=== PATIENT | female | born 1935 | race Caucasian/White ===

== ENCOUNTER 2016-11-30 03:45 | Inpatient (IN) | payer OTHER, MEDICARE ==
[~2016-11-30] VITALS: Ht 165.1 cm; Wt 76.2 kg
[~2016-11-30 03:45] MED LIST: ADULT LOW DOSE81 MG PO; ASPIRIN EC325 M2 PO; ASPIRIN EC81 M1 PO; COLACE100 M1 PO; COZAAR100 M1 PO; DILAUDID2 M1 PO; MIRALAX17 G1 PO; PRAVACHOL40 M1 PO; TIROSINT75 MC1 PO; ZYLOPRIM300 M1 PO
--- NOTE | 2016-11-30 10:16 | Admission Core Measures ---
Admission Meds I reviewed the following Meds: Current Medications Sig/Reva Start time Last Medication Dose Stop Time Status Admin Acetaminophen 975 MG ONCE 11/30 0000 NR (Tylenol) 11/30 2358 Allopurinol 300 MG DAILY 12/01 1000 AC (Zyloprim) Cefazolin Sodium 2,000 MG ONCE 11/30 0000 NR (Kefzol-Ancef Inj) 11/30 2358 Levothyroxine Sodium 0.075 MG DAILY AC 12/01 0700 AC (Synthroid) Losartan Potassium 100 MG BID 11/30 2199 UNVr (Cozaar) Oxycodone HCl 10 MG ONCE 11/30 0000 NR (Roxicodone) 11/30 2358 Patient Medication 1 UNIT 17011/30 170 AC Teaching 11/30 170 (STATIN EDUCATION) Pravastatin Sodium 40 MG 1700 11/30 170 AC (Pravachol) Acute Coronary Syndrome Inclusion Criteria ACS Diagnosis No Inpatient Core Measures LDL Reminder: If No, please order W/I first 24hr of stay Congestive Heart Failure Inclusion Criteria CHF Diagnosis No Cerebrovascular accident Inclusion Criteria CVA/TIA Diagnosis No Inpatient Core Measures Bedside Swallow Eval Reminder: If BSE failed, place ST order Antithrombotic Reminder: Order Antithrombotic Medication by end of day 2 Antithrombotic Reminder: Document Reason Antithrombotic Not ordered by end of day 2 AFIB/Flutter Reminder: If Present, add to problem list AFIB/Flutter Reminder: Order Anticoag Medication for pts with AFIB/Flutter Atherosclerosis Reminder: If Present, add to problem list LDL Reminder: If No, please order W/I first 24hr of stay PT Order Reminder: If No, please order Venous thromboembolism Inpatient Core Measures VTE Risk Factors: Age > 40, Surgery No [facility] VTE prophylaxis d/t No contraindications No VTE Pharm Prophylaxis d/t No contraindications Inclusion Criteria - Per Current guidelines, there needs to be overlap - treatment for the first 5 days of Warfarin therapy. - Parenteral Anticoagulation (IV or SC) needs to be - given along with Warfarin therapy. VTE Diagnosis No VTE Type NONE VTE Confirmed by (Test) NONE Problem List As ranked by this Provider includes Assessment & Plan 1. Status post total left knee replacement HOME MEDS Home Med List Allopurinol (Zyloprim) 300 MG TABLET 1 TAB PO DAILY GOUT (Reported) Aspirin (Ecotrin*) 81 MG TABLET.DR 1 TAB PO DAILY PROPHO (Reported) Levothyroxine Sodium (Tirosint) 75 MCG CAPSULE 0.5 TAB PO DAILY THYROID ( Reported) Losartan (Cozaar) 100 MG TABLET 1 TAB PO BID HEART HEALTH (Reported) Pravastatin Sodium (Pravachol) 40 MG TABLET 1 TAB PO DAILY CHOLESTEROL ( Reported)
--- NOTE | 2016-11-30 10:18 | Surg Short-stay <48hrs Dis Sum ---
Visit Information Visit Dates Admission Date: 11/30/16 Discharge Date: 12/03/16 Surgical Short Stay DC Summary Admission Diagnosis: KNEE PAIN Final Diagnosis: S/P TKR Procedure(s): right TKR - see operative report Summary/Significant Findings: Pt underwent a r tkr by Dr Valencia, she tolerated the procedure well and was brought to the PACu in stable condition. Over the next two days she was voiding without difficulty, her pain was well controlled. She worked with PT and was deemed stable for discharge home with services. Condition at Discharge: good Discharge Disposition: home health services Discharge instructions provided to patient/family: Yes Post discharge follow-up plan: Keep scheduled appointment with DR Valencia. Call sooner if needed.
--- NOTE | 2016-11-30 10:20 | Patient Discharge Instructions ---
Discharge Instructions General Discharge Information You were seen/treated for: Knee pain You had these procedures: Total knee replacement Watch for these problems: temp>101, increased redness or drainage of wounds, inability to bear weight No bath, but you may shower: Yes Other wound care: Keep incision clean and dry Diet Recommended Diet: Heart Healthy Activity Activity Self Limited: Yes Activity Limited to: Weight bear as tolerated Acute Coronary Syndrome Inclusion Criteria At DC or during hospital stay patient has or had the following: ACS DIAGNOSIS No Discharge Core Measures Meds if any: Prescribed or Continued at Discharge Meds if any: NOT Prescribed or Continued at Discharge Congestive Heart Failure Inclusion Criteria At DC or during hospital stay patient has or had the following: CHF DIAGNOSIS No Discharge Core Measures Meds if any: Prescribed or Continued at Discharge Meds if any: NOT Prescribed or Continued at Discharge Cerebrovascular accident Inclusion Criteria At DC or during hospital stay patient has or had the following: CVA/TIA Diagnosis No Discharge Core Measures Meds if any: Prescribed or Continued at Discharge Meds if any: NOT Prescribed or Continued at Discharge Venous thromboembolism Inclusion Criteria VTE Diagnosis No VTE Type NONE VTE Confirmed by (Test) NONE Discharge Core Measures - Per Current guidelines, there needs to be overlap - treatment for the first 5 days of Warfarin therapy. - If discharged on Warfarin prior to 5 days of - overlap therapy, the patient will need to be - assessed for post discharge needs including - *Post discharge parental anticoagulation - *Warfarin and/or parental anticoagulation education - *Follow up date to check INR post discharge At least 5 days overlap therapy as Inpatient No Meds if any: Prescribed or Continued at Discharge Note: Overlap Therapy is Warfarin and Anticoagulant Meds if any: NOT Prescribed or Continued at Discharge
[2016-11-30] MEDS ORDERED: MIRALAX17 G1 PO (10:24)
[2016-11-30] MEDS ORDERED: DILAUDID4 M1 PO (10:24)
[2016-11-30] MEDS ORDERED: MS CONTIN15 M2 PO (10:24)
[2016-11-30] MEDS ORDERED: COLACE100 M1 PO (10:24)
[2016-11-30] MEDS ORDERED: ASPIRIN EC325 M2 PO (10:24)
--- NOTE | 2016-11-30 14:40 | PN- Orthopedic ---
Subjective Subjective: Awake, alert No complaints at this time Pain is well controlled No nausea Has not worked with PT yet Objective Vital Signs and I&Os VSS, afebrile No voiding yet post op Physical Exam: General: alert and oriented times three Chest:clear anteriorly bilaterally, RRR Abd: soft, good bs Ext: warm, no edema, positive sensate, 5/5 MARLO BLE, no calf tenderness Wound: dressed, dry, ice pack in place On Q in place Assessment/Plan Assessment/Plan 81 yo female s/p R TKR pain management On Q per anesthesia PT - wbat asa 325mg po bid for dvt ppx Core Measures/Miscellaneous Venous Thromboembolism VTE Risk Factors: Age > 40, Surgery VTE Contraindications: No Contraindications VTE Diagnosis: No VTE Type: NONE VTE Confirmed by (Test): NONE [facility] Is Beta Elizabeth a Home Med? No Antibiotics Is Patient on Antibiotics? Yes If Yes: prophylaxis (24 hrs post op)
[2016-11-30 16:04] VITALS: BP 132/70
--- NOTE | 2016-11-30 16:47 | Operative Report ---
Operative/Inv Procedure Report Surgery Date: 11/30/16 Name of Procedure: Right total knee replacement Pre-Operative Diagnosis: Primary right knee DJD Post-Operative Diagnosis: Same Estimated Blood Loss: 50ml to 100ml Surgeon/Associate Entertainment Editor: DONNA FOSTER,YOLETTE Rush Anesthesia: block Operative/Procedure Note Note: Description of Procedure: The patient was taken to the operating room and positively identified. After induction of spinal anesthesia and administration of appropriate pre-operative antibiotics, the patient was positioned supine on the operating room table and all bony prominences were well padded. A well-padded pneumatic tourniquet was placed on the right upper thigh. After performing a surgical timeout, the right lower extremity was prepped and draped in the usual sterile fashion. After exsanguination with Esmarch the tourniquet was inflated to 250mm of mercury. A standard medial parapatellar approach was made to the knee. This was carried down through skin and subcutaneous tissue to the level of the fascia. Meticulous hemostasis was maintained with Bovie electrocautery. The extensor mechanism and patellar retinaculum were opened sharply and the patella was everted. The infrapatellar fat was resected in order to improve exposure. Osteophytes were trimmed from the patella and femoral condyles and the patella was re-everted and tucked laterally. A medial release was performed and the cruciate ligaments were resected. The tibia was then subluxed anteriorly. Utilizing the appropriate extra-medullary guide, the proximal tibia was trimmed perpendicular to the long axis of the tibial shaft. Attention was then turned to the femur. After opening the medullary canal, the distal femoral cut was made in 6 degrees of valgus utilizing the appropriate intra-medullary guide. The extension gap was checked and found to be appropriate. The femur was then sized and the remainder of the femoral cuts were made with a size 4 4-in-1 femoral cutting guide. The flexion gap was checked and found to be symmetric and appropriate. The knee was then trialed with a size 4 femoral component, a size 4 tibial component and a size 11 mm polyethylene insert. The patella was trimmed to accept an A 35 patella. This yielded excellent range of motion, stability and patellar tracking. All trial components were removed and the knee was copiously irrigated with sterile saline. All components were cemented into place with [place] Simplex cement. All the components were of the [employer] Tri[employer] knee system of the above stated sizes. The knee was again irrigated after cementation. The extensor mechanism and patellar retinaculum were repaired using interrupted #1 vicryl suture. The skin was re-approximated with 2-0 vicryl and closed with jhoana. A sterile dressing was applied, the tourniquet was deflated, the patient was awakened and taken to the recovery room in satisfactory condition.
[2016-11-30 17:25] VITALS: BP 134/70
[2016-11-30 23:11] VITALS: BP 130/70
[2016-11-30 23:12] VITALS: BP 134/84
[2016-11-30 23:13] VITALS: BP 136/66
[2016-12-01 03:26] VITALS: BP 152/83
[2016-12-01 06:42] VITALS: BP 162/79
--- NOTE | 2016-12-01 07:56 | PN- Orthopedic ---
Subjective Subjective: The patient was seen this morning postoperatively day 1. She reports some minor soreness but the current pain regiment is adequate. She has no other complaints at the current time. Objective Vital Signs and I&Os Vital Signs Date Time Temp Pulse Resp B/P B/P Pulse O2 O2 Flow FiO2 Mean Ox Delivery Rate 12/01 0542 98.0 81 20 162/79 95 Room Air 12/01 0326 98.1 72 20 152/83 93 Room Air 11/30 2313 98.6 68 18 136/66 93 Room Air 11/30 2312 98.5 65 18 134/84 97 Room Air / 2311 98.8 69 18 130/70 94 Room Air / 1725 97.7 63 20 134/70 96 Room Air 11/30 1604 98.4 59 18 132/70 95 Room Air 11/30 1549 95 Room Air Intake & Output 12/01 0800 05/ 0000 05/08 1600 / 0800 05/08 0000 05/ 1600 Intake Total 1250 Output Total 950 500 Balance -950 750 Intake, IV 800 Intake, Oral 450 Output, Urine 950 500 Patient 168 lb 168 lb Weight Physical Exam: Gen.: Alert and in no obvious distress Skin: Warm and dry Extremities: Bilateral lower extremities are warm without calf tenderness or significant edema. Gross motor and sensory are intact. Right knee surgery dressing is clean, dry, and intact. His On-Q pain pump intact. Assessment/Plan Assessment/Plan Assessment: 81-year-old female status post right total knee arthroplasty postoperative day 1. The patient is progressing as expected and her pain is under adequate control. Plan: Out of bed with physical therapy Continue current pain regiment Hep-Lock IV fluids Follow-up morning laboratory studies Aspirin 325 mg by mouth twice a day GI and DVT prophylaxis Strict I's and O's Incentive spirometry First surgical dressing change tomorrow Core Measures/Miscellaneous Venous Thromboembolism VTE Risk Factors: Age > 40, Surgery VTE Contraindications: No Contraindications VTE Diagnosis: No VTE Type: NONE VTE Confirmed by (Test): NONE Beta Elizabeth Is Beta Elizabeth a Home Med? No Antibiotics Is Patient on Antibiotics? No
[2016-12-01 08:10] LABS: ABSOLUTE BASOPHIL COUNT 0 /CUMM (0.0-0.2); ABSOLUTE EOSINOPHIL COUNT 0.2 /CUMM (0.0-0.7); ABSOLUTE GRANULOCYTE CT 4.6 /CUMM (1.4-6.5); ABSOLUTE LYMPH COUNT 1.4 /CUMM (1.2-3.4); ABSOLUTE MONOCYTE COUNT 0.6 /CUMM (0.10-0.60); BASOPHIL % 0.7 % (0.0-2.0); EOSINOPHIL % 2.5 % (0-5); GRANULOCYTE % 67.8 % (42.2-75.2); HEMATOCRIT 29.6 % (37-47); MEAN CORPUSCULAR HGB CONC 33.2 G/DL (33.0-37.0); MEAN CORPUSCULAR VOLUME 90.3 FL (81.0-99.0); MEAN PLATELET VOLUME 7.8 FL (7.4-10.4); PLATELET COUNT 203 /CUMM (130-400); RBC DISTRIBUTION WIDTH 13.5 % (11.5-14.5); RED BLOOD CELL CT 3.28 /CUMM (4.20-5.40); WHITE BLOOD CELL COUNT 6.8 /CUMM (4.8-10.8)
[2016-12-01 14:20] VITALS: BP 162/82
[2016-12-01 22:40] VITALS: BP 154/78
[2016-12-02 06:56] VITALS: BP 130/70
--- NOTE | 2016-12-02 07:18 | PN- Orthopedic ---
See Addendum Subjective Subjective: POD#2 S/P RIGHT TKA PAIN ISSUES YESTERDAY BUT IMPROVED TODAY WITH PO PAIN MEDS ELIER CP, SOB, NO N+V WITH DIET Objective Vital Signs and I&Os Vital Signs Date Time Temp Pulse Resp B/P B/P Pulse O2 O2 Flow FiO2 Mean Ox Delivery Rate / 0656 98.6 69 18 130/70 95 Room Air 12/01 2240 98.6 78 20 154/78 97 Room Air 12/01 1420 98.2 77 20 162/82 96 Room Air 12/01 1006 86 165/92 Intake & Output / 0800 12/02 0000 12/01 1600 12/01 0800 12/01 0000 11/30 1600 Intake Total 771 201 8185 Output Total 1050 500 950 500 Balance -930 -100 -950 750 Intake, IV 0 800 Intake, Oral 120 400 450 Number 0 Bowel Movements Output, Urine 1050 500 950 500 Patient 168 lb 168 lb Weight Physical Exam: CV; RRR LUNGS: CLEAR ABD: SOFT, +BS EXT: DRSG CHANGED, WOUND C/D/I NO CALF TENDERNESS BILAT DISTAL CMS INTACT Assessment/Plan Assessment/Plan ORTHO STABLE PLAN CONT OOB WITH PT/STAIRS ELIQUIS BIS FOR DVT PROPHYLAXIS HOME D/C PLANNING Core Measures/Miscellaneous Venous Thromboembolism VTE Risk Factors: Age > 40, Surgery VTE Contraindications: No Contraindications VTE Diagnosis: No VTE Type: NONE VTE Confirmed by (Test): NONE Beta Elizabeth Is Beta Elizabeth a Home Med? No Antibiotics Is Patient on Antibiotics? No
[2016-12-02 14:28] VITALS: BP 139/90
[2016-12-02 22:07] VITALS: BP 144/80
[2016-12-03 06:49] VITALS: BP 150/64
--- NOTE | 2016-12-03 07:30 | PN- Orthopedic ---
Subjective Subjective: Patient is now postoperative day #3 status post right total knee replacement. She has no major complaints today. Pain is well-controlled. She is been ambulating well with physical therapy. She is tolerating a diet and voiding well. No bowel movement as of yet, but she somewhat feels the urge and things settled much easier to have one when she gets home. Otherwise denies headache, dizziness, chest pain, shortness of breath. Objective Vital Signs and I&Os Vital Signs Date Time Temp Pulse Resp B/P B/P Pulse O2 O2 Flow FiO2 Mean Ox Delivery Rate 12/03 0649 98.9 81 20 150/64 94 Room Air 12/02 2207 98.5 88 20 144/80 96 / 1428 98.6 90 18 139/90 94 Room Air 12/02 0958 86 144/60 Intake & Output 12/03 1600 12/03 0800 12/03 0000 12/02 1600 12/02 0800 12/02 0000 Intake Total 240 900 50 120 Output Total 400 898 000 8454 Balance -160 400 -550 -930 Intake, IV 0 Intake, Oral 240 900 50 120 Number 0 Bowel Movements Output, Urine 400 635 747 1553 Physical Exam: Gen.: Patient is awake and alert. No acute distress. Cardiac: Regular Pulmonary: Lungs are clear bilaterally. Abdomen: Soft and nondistended. Nontender. Normoactive bowel sounds were heard. Extremities: The right knee incision is clean, dry, and intact with jhoana. There is some mild surrounding swelling and ecchymosis, within expected limits. Lower x-ray sensation is intact and strength of dorsiflexion and plantar flexion are 5 out of 5. No significant calf tenderness is appreciated bilaterally. Assessment/Plan Assessment/Plan Patient is an 81-year-old female with a past medical history significant for gout, hypothyroidism, hypertension, and hyperlipidemia, who is now postoperative day #3 status post right total knee replacement. She remains stable from a surgical standpoint and is awaiting discharge to home. Plan: -Continue PT for mobilization. Weight-bear as tolerated. -Dry dressing change once daily. -Aspirin 325 mg twice a day for DVT prophylaxis. -Bowel regimen with Colace and MiraLAX. Still awaiting bowel movement, however patient would prefer to try at home. -Pain control with oral Dilaudid as needed. -Plan for discharge to home today with home PT and nursing services. Core Measures/Miscellaneous Venous Thromboembolism VTE Risk Factors: Age > 40, Surgery VTE Contraindications: No Contraindications VTE Diagnosis: No VTE Type: NONE VTE Confirmed by (Test): NONE Beta Elizabeth Is Beta Elizabeth a Home Med? No Antibiotics Is Patient on Antibiotics? No
[2016-12-03 08:53] VITALS: BP 132/60
== END 2016-12-03 10:13 | disposition home health service (06) | DRG 470 ==
LOC: SDA 03:45 → 2NB 03:45 → ENRESERV 12:57 → 2NB 15:10 → ENPENDDIS 12-03 08:50 → 2NB 12-03 10:13
PROVIDERS: Physician Assistant Surgical; ADMIT Orthopaedic Surgery
PROC: 0SRC0J9 Replacement of Right Knee Joint with Synthetic Substitute, Cemented, Open Approach (ICD-10-PCS; principal; 2016-12-01)
DX: M17.11 Unilateral primary osteoarthritis, right knee (principal); J44.9 Chronic obstructive pulmonary disease, unspecified; I10 Essential (primary) hypertension; E03.9 Hypothyroidism, unspecified; M10.9 Gout, unspecified; J45.909 Unspecified asthma, uncomplicated; E55.9 Vitamin D deficiency, unspecified; G43.909 Migraine, unspecified, not intractable, without status migrainosus; E78.00 Pure hypercholesterolemia, unspecified; Z87.891 Personal history of nicotine dependence
CPT/HCPCS: 2NBSP; 82436; 88305; 97110-GO; 97116-GO; 97161-GP; 97530-GO; C1713; J0690; J2405; J2795; J3490; J7042